=== PATIENT | female | born 1955 | race Caucasian/White ===

== ENCOUNTER 2021-07-22 14:26 | Outpatient (CLI) | payer OTHER | END 2021-07-22 14:39 | disposition home or self-care (01) | LOC: EDBD 14:26 → RAD 14:26 | PROVIDERS: ATTEND Internal Medicine | DX: R07.89 Other chest pain (principal); R22.1 Localized swelling, mass and lump, neck; J45.30 Mild persistent asthma, uncomplicated ==

== ENCOUNTER 2021-07-27 08:36 | Outpatient (CLI) | payer OTHER | END 2021-07-27 15:22 | disposition home or self-care (01) | LOC: EDBD 08:36 → TOM 08:36 | DX: C34.12 Malignant neoplasm of upper lobe, left bronchus or lung (principal); K59.09 Other constipation; R10.84 Generalized abdominal pain; R10.10 Upper abdominal pain, unspecified ==

== ENCOUNTER 2021-07-27 13:52 | Outpatient (CLI) | payer OTHER | END 2021-07-27 13:54 | disposition home or self-care (01) | LOC: NUCLEAR 13:52 | PROVIDERS: ATTEND Internal Medicine | DX: M81.0 Age-related osteoporosis without current pathological fracture (principal) ==

== ENCOUNTER 2021-08-17 07:57 | Outpatient (CLI) | payer OTHER | END 2021-08-17 07:59 | disposition home or self-care (01) | LOC: TOM 07:57 | DX: R06.09 Other forms of dyspnea (principal); J38.7 Other diseases of larynx ==

== ENCOUNTER 2021-08-31 21:11 | Emergency (ER) | payer OTHER ==
[~2021-08-31] VITALS: Ht 167.6 cm; Wt 63.5 kg
[2021-08-31] MEDS ORDERED: XOPENEX HFA15 GM IH (21:29)
[2021-08-31] MEDS ORDERED: NORVASC5 MG PO (21:29)
[2021-08-31] MEDS ORDERED: ATORVASTATIN CA20 MG PO (21:32)
[2021-08-31] MEDS ORDERED: CLINDAMYCIN HC300 MG PO (23:47)
[2021-08-31] MEDS ORDERED: PEPCID AC20 MG PO (23:47)
[2021-08-31] MEDS ORDERED: DICLOFENAC SODI75 MG PO (23:47)
[2021-08-31] MEDS ORDERED: PROBIOTIC1 EAC2 PO (23:47)
== END 2021-09-01 00:02 | disposition home or self-care (01) ==
LOC: ER 21:11
DX: K04.7 Periapical abscess without sinus (principal); K08.89 Other specified disorders of teeth and supporting structures

== ENCOUNTER 2022-07-21 07:44 | Outpatient (CLI) | payer OTHER ==
[~2022-07-21 07:44] MED LIST: ATORVASTATIN CA20 MG PO; CLINDAMYCIN HC300 MG PO; DICLOFENAC SODI75 MG PO; NORVASC5 MG PO; PEPCID AC20 MG PO; PROBIOTIC1 EAC2 PO; XOPENEX HFA15 GM IH
== END 2022-07-21 15:39 | disposition home or self-care (01) ==
LOC: TOM 07:44
PROVIDERS: ATTEND Otolaryngology
DX: G50.1 Atypical facial pain (principal); J32.4 Chronic pansinusitis; R51.0 Headache with orthostatic component, not elsewhere classified

== ENCOUNTER → 2022-11-23 | Outpatient (CLI) | payer OTHER | END | disposition home or self-care (01) | LOC: NUCLEAR 11-02 07:00 | DX: K31.84 Gastroparesis (principal) | CPT/HCPCS: 78264; A9541 ==

== ENCOUNTER 2023-01-03 08:00 | Outpatient (CLI) | payer OTHER | END 2023-01-03 14:00 | disposition home or self-care (01) | LOC: MAMO-SONO 08:00 | DX: Z12.31 Encounter for screening mammogram for malignant neoplasm of breast (principal); N63.0 Unspecified lump in unspecified breast ==

== ENCOUNTER 2023-12-27 07:15 | Outpatient (CLI) | payer OTHER | END 2023-12-27 07:22 | disposition home or self-care (01) | LOC: SONOGRAMA 07:15 | DX: E04.1 Nontoxic single thyroid nodule (principal) ==

== ENCOUNTER 2024-08-25 12:13 | Outpatient (CLI) | payer OTHER | END 2024-08-25 12:55 | disposition home or self-care (01) | LOC: MAMO-SONO 12:13 | DX: N63.0 Unspecified lump in unspecified breast (principal); M54.12 Radiculopathy, cervical region; Z12.31 Encounter for screening mammogram for malignant neoplasm of breast | CPT/HCPCS: 72141 ==

== ENCOUNTER 2024-09-17 13:03 | Outpatient (CLI) | payer OTHER | END 2024-09-17 13:04 | disposition home or self-care (01) | LOC: SONOGRAMA 13:03 | PROVIDERS: ATTEND Obstetrics & Gynecology | DX: N95.2 Postmenopausal atrophic vaginitis (principal); R10.2 Pelvic and perineal pain; Z01.419 Encounter for gynecological examination (general) (routine) without abnormal findings ==

== ENCOUNTER 2024-09-17 13:08 | Outpatient (CLI) | payer OTHER | END 2024-09-17 13:09 | disposition home or self-care (01) | LOC: NUCLEAR 13:08 | DX: M81.0 Age-related osteoporosis without current pathological fracture (principal) ==

== ENCOUNTER 2025-10-05 10:20 | Outpatient (CLI) | payer OTHER | END 2025-10-05 10:37 | disposition home or self-care (01) | LOC: MAMO-SONO 10:20 | DX: N63.0 Unspecified lump in unspecified breast (principal); M54.2 Cervicalgia; M54.12 Radiculopathy, cervical region | CPT/HCPCS: 72141; 72148 ==